=== PATIENT | male | born 1930 | race Caucasian/White ===

== ENCOUNTER 2016-10-11 12:15 | Emergency (ER) | payer SELFPAY ==
[~2016-10-11] VITALS: Ht 167.6 cm; Wt 100.0 kg
[2016-10-11 12:27] VITALS: BP 108/65; PULSE 65; RESP 18; TEMP 97.9; O2SAT 96
--- NOTE | 2016-10-11 12:42 | PD ---
HPI Chief Complaint: ENT Complaint Time Seen by Provider: 12:20 Travel History International Travel<30 days: No Contact w/Intl Traveler<30days: No History of Present Illness HPI Send 86-year-old man was sent to the emergency department for growth in his right nostril. Been ongoing for several weeks. No acute change. No pain. No trouble breathing. Some drainage from the narrative. No other complaints. History Past Medical History Narrative Medical From records: Heart failure Hypertensive heart disease GERD Osteoarthritis Urticaria BPH Urinary incontinence Altered mental status Muscle weakness Social History Tobacco Use: No Review of Systems Except as stated in HPI: all other systems reviewed are Neg Physical Exam Narrative GENERAL: Well-appearing 86, no acute distress. SKIN: Warm and dry. HEENT: Obvious asymmetry with fullness and swelling in the right side of the nose in the right knee air. In side the narrative there is friable mucosa suspicious for malignancy. A little bit of purulent drainage. On the external skin there is no erythema redness or tenderness. CARDIOVASCULAR: Warm and well perfused. RESPIRATORY: Normal rate and effort. MUSCULOSKELETAL: No Gross deformities. NEUROLOGICAL: Awake and alert. No gross deficits. Data Data Last Documented VS Vital Signs Date Time Temp Pulse Resp B/P (MAP) Pulse Ox O2 Delivery O2 Flow Rate FiO2 10/11/16 12:27 97.9 65 18 108/65 (79) 96 MDM Medical Decision Making Medical Screen Exam Complete: Yes Emergency Medical Condition: Yes Differential Diagnosis Infection, inflammation, malignancy, other Narrative Course Medical decision making 86-year-old male with swelling to the right near suspicious for malignancy. Possible infection but less likely. I spoke with Dr. Jones, he can see him in the office this Sunday and [place]. Diagnosis Primary Impression: Swelling of nose Referrals: Ko Jones MD 2 days Patient Instructions: General Instructions Additional Instructions: Call to make an appointment with Dr. Jones on Sunday. He can see you Sunday at his [place] office. Return to the emergency department for any new or worsening symptoms. Med/Other Pt SpecificInfo: No Change to Meds Disposition: 01 DISCHARGE HOME Condition: Stable Romeo Ozuna MD Oct 11, 2016 12:42
== END 2016-10-11 14:17 | disposition home or self-care (01) ==
LOC: NEPC 12:15
DX: R22.0 Localized swelling, mass and lump, head (principal); I11.0 Hypertensive heart disease with heart failure; I50.9 Heart failure, unspecified; K21.9 Gastro-esophageal reflux disease without esophagitis; M19.90 Unspecified osteoarthritis, unspecified site; N40.0 Benign prostatic hyperplasia without lower urinary tract symptoms
CPT/HCPCS: 99281